=== PATIENT | female | born 1945 | race Caucasian/White ===

== ENCOUNTER 2017-01-11 07:17 | Day surgery (SDC) | payer MEDICARE, BC ==
--- NOTE | ~2017-01-11 | EGD ---
EGD REPORT [facility] [address] [place] [address] NAME: ADAMS YANEZ : [birth year] STATUS : REG [facility]#: [id number] AGE: 71 ADM/REG DATE : 01/11/17 MR#: [id number] REPORT SERV DATE: 01/11/17 DICTATED BY: HUY TUCKER DATE: 01/11/17 REPORT STATUS : Draft TRANSCRIBED BY: [facility] DATE: 01/11/17 Endoscopy Center Patient Name: Adams Yanez Date of : 1945 Attending MD: HUY TUCKER MD Procedure Date No Time: 01/11/2017 Procedure: Colonoscopy Indications: High risk colon cancer surveillance: Personal history of colonic polyps Referring MD: OMA MORATAYA, CHARLI HUNTER MD Medicines: as per anesthesia Complications: No immediate complications. Procedure: Pre-Anesthesia Assessment: - ASA Grade Assessment: III - A patient with severe systemic disease. After I obtained informed consent, the scope was passed under direct vision. Throughout the procedure, the patient's blood pressure, pulse, and oxygen saturations were monitored continuously. The [facility] [id number] was introduced through the anus and advanced to the cecum, identified by appendiceal orifice and ileocecal valve. The colonoscopy was performed without difficulty. The patient tolerated the procedure. The quality of the bowel preparation was adequate to identify polyps. Findings: The perianal and digital rectal examinations were normal. Internal hemorrhoids were found during endoscopy and were mild. Impression: - Internal hemorrhoids. Recommendation: - Repeat colonoscopy in 5 years for surveillance. Procedure Code(s): --- Professional --- 28685, Colonoscopy, flexible, proximal to splenic flexure; diagnostic, with or without collection of specimen(s) by brushing or washing, with or without colon decompression (separate procedure) Diagnosis Code(s): --- Professional --- K64.8, Other hemorrhoids Z86.010, Personal history of colonic polyps CPT copyright 2013 [employer]. All rights reserved. EGD REPORT [facility] [address] [place] [id number] NAME: ADAMS YANEZ : [birth year] STATUS : REG [facility] PAT#: [id number] AGE: 71 ADM/REG DATE : 01/11/17 MR#: [id number] REPORT SERV DATE: 01/11/17 DICTATED BY: HUY TUCKER. DATE: 01/11/17 REPORT STATUS : Draft TRANSCRIBED BY: [employer] DATE: 01/11/17 The codes documented in this report are preliminary and upon furniture technician review may be revised to meet current compliance requirements. HUY TUCKER MD 01/11/2017 8:53 AM This report has been signed electronically. Number of Addenda: 0 Note Initiated On: 01/11/2017 8:24 AM Scope Withdrawal Time 0 hours 6 minutes 38 seconds [id number] [place] [id number]
[~2017-01-11 07:17] MED LIST: ASAB PO; B COMPLETE PO; CALTRA600D PO; CENTRUM TAB1 TAB PO; CO Q-10100 MG PO; FISH-EPA1000 MG PO; GLUCPH PO; HCTZ25B PO; HYDROCHLOROT25 MG PO; KDUR20 PO; L-LYSINE ACE500 MG PO; L20 PO; MULTIPLE VIT PO; NORV5 PO; PROBIOTIC PO; VITAMIN D1000 UNI1 PO; VITAMIN D31000 UNIT PO; [UNRECOGNIZED DRUG - OTHER]
== END 2017-01-11 23:59 | disposition home or self-care (01) ==
LOC: DMU 07:17
PROVIDERS: Internal Medicine Gastroenterology
PROC: 0DJD8ZZ Inspection of Lower Intestinal Tract, Via Natural or Artificial Opening Endoscopic (ICD-10-PCS; 2017-01-11)
PROC: 0DJD8ZZ Inspection of Lower Intestinal Tract, Via Natural or Artificial Opening Endoscopic (ICD-10-PCS; principal; 2017-01-11 09:00)
DX: Z12.11 Encounter for screening for malignant neoplasm of colon (principal); K64.8 Other hemorrhoids; I10 Essential (primary) hypertension; E11.9 Type 2 diabetes mellitus without complications; E21.5 Disorder of parathyroid gland, unspecified; K76.0 Fatty (change of) liver, not elsewhere classified; N28.9 Disorder of kidney and ureter, unspecified; M19.90 Unspecified osteoarthritis, unspecified site; Z87.01 Personal history of pneumonia (recurrent); Z85.3 Personal history of malignant neoplasm of breast; Z86.010 Personal history of colon polyps; Z88.5 Allergy status to narcotic agent; Z91.048 Other nonmedicinal substance allergy status; Z79.84 Long term (current) use of oral hypoglycemic drugs; Z79.82 Long term (current) use of aspirin; Z79.899 Other long term (current) drug therapy; Z92.21 Personal history of antineoplastic chemotherapy; Z92.3 Personal history of irradiation; Z96.643 Presence of artificial hip joint, bilateral; Z90.49 Acquired absence of other specified parts of digestive tract; Z98.41 Cataract extraction status, right eye; Z98.42 Cataract extraction status, left eye; Z96.1 Presence of intraocular lens; Z90.89 Acquired absence of other organs; Z88.8 Allergy status to other drugs, medicaments and biological substances
CPT/HCPCS: 82962